=== PATIENT | male | born 1960 | race Caucasian/White ===

== ENCOUNTER 2022-11-15 14:57 | Emergency (ER) | payer BC ==
[2022-11-15 15:08] VITALS: BP 162/86; PULSE 87; RESP 18; TEMP 98.9; BMI 32.3
[2022-11-15] MEDS ORDERED: CEFAZOLIN SODIUM 2 GM VIAL IVPB ONE (15:18)
[2022-11-15] MEDS ORDERED: ceFAZolin SODIUM 1 GM VIAL ONE (15:49)
[2022-11-15 16:05] LABS: INR 0.98 (0.83-1.09); PROTHROMBIN TIME (PATIENT) 11.3 SEC (9.7-13.0)
[2022-11-15 16:13] LABS: ALBUMIN 4.7 g/dl (3.4-5.0); BILIRUBIN,TOTAL 1.1 mg/dl (0.2-1); CALCIUM 9.3 mg/dl (8.5-10); CREATININE 0.9 mg/dl (0.55-1.3); TOT PROT 7.7 g/dl (6.4-8.2)
[2022-11-15 17:37] LABS: HEMATOCRIT 40.8 % (35.4-49); HEMOGLOBIN 14.2 GM/dL (11.7-16.9); MCH 29.4 pg (25.7-33.7); MCHC 34.8 g/dl (32.0-35.9); MEAN CELL VOLUME 84.5 fl (80-96); MEAN PLT VOLUME 8.5 fl (7.5-11.1); PLATELET COUNT 179 10^3/uL (134-434); RBC 4.83 M/mm3 (4.00-5.60); RDW 13.7 % (11.9-15.9); WHITE BLOOD COUNT 7.8 K/mm3 (4.0-10.0)
[2022-11-15 17:52] LABS: BASO % 0.4 % (0-2.0); EOS % 0.6 % (0-4.5); LYMPH % 20.6 % (8-40); MONO % 8.4 % (3.8-10.2)
[2022-11-15] MEDS ORDERED: LIDOCAINE HCL 2% (20ML MULTI-DOSE VIAL) ONE (19:32)
== END 2022-11-15 20:40 | disposition home or self-care (01) ==
LOC: FER 14:57
DX: S60.453A Superficial foreign body of left middle finger, initial encounter (principal); W31.2XXA Contact with powered woodworking and forming machines, initial encounter; Y93.89 Activity, other specified; Z20.822 Contact with and (suspected) exposure to COVID-19
CPT/HCPCS: 36415; 73140-TC-LT-FY; 80053; 85025; 85610; 86850; 86900; 86901; 99284-25; C9803-CS; U0003; U0005

== ENCOUNTER 2023-02-03 20:58 | Observation (INO) | payer BC ==
[2023-02-03] MEDS ORDERED: dilTIAZem HCL 50 MG/10 ML - 10 ML VIAL IVPUSH ONE (21:44)
[2023-02-03] MEDS ORDERED: dilTIAZem HCL 125 MG/25 ML - 25 ML VIAL ONE (21:48)
[2023-02-03 22:13] LABS: HEMATOCRIT 41.5 % (35.4-49); HEMOGLOBIN 14.5 G/dL (11.7-16.9); MCH 31.1 pg (25.7-33.7); MCHC 34.8 g/dl (32.0-35.9); MEAN CELL VOLUME 89.3 fl (80-96); MEAN PLT VOLUME 8.6 fl (7.5-11.1); PLATELET COUNT 160.2 10^3/uL (134-434); RBC 4.65 10^6/uL (4.00-5.60); RDW 13.9 % (11.9-15.9); WHITE BLOOD COUNT 5.9 10^3/uL (4.0-10.8)
[2023-02-03 22:17] LABS: INR 1.22 (0.83-1.09); PROTHROMBIN TIME (PATIENT) 14.1 SEC (9.7-13.0)
[2023-02-03 22:20] LABS: PLATELET ESTIMATE ADEQUATE
[2023-02-03 22:29] LABS: ALBUMIN 4.7 g/dl (3.4-5.0); BILIRUBIN,TOTAL 0.6 mg/dl (0.2-1); BLOOD UREA NITROGEN 21.4 mg/dl (7-18); CALCIUM 9.5 mg/dl (8.5-10.1); CREATININE 1.1 mg/dl (0.6-1.3); POTASSIUM 3.8 mmol/L (3.5-5.1); SGOT/AST 25.6 U/L (15-37); TOT PROT 7.2 g/dl (6.4-8.2)
[2023-02-04 02:14] VITALS: RESP 18
[2023-02-04 04:12] VITALS: BMI 31.6
[2023-02-04] MEDS ORDERED: TAMSULOSIN HCL 0.4 MG CAP PO SCH (08:30)
[2023-02-04] MEDS: dilTIAZem HCL 30 MG TABLET PO SCH ×2 (08:45→13:04)
[2023-02-04] MEDS ORDERED: APIXABAN 5 MG TABLET PO SCH (10:00)
[2023-02-04] MEDS ORDERED: amLODIPine BESYLATE 5 MG TABLET (FP) PO SCH (10:00)
[2023-02-04 11:02] LABS: POTASSIUM 4.5 mmol/L (3.5-5.1)
[2023-02-04 11:04] LABS: BASO % 0.3 % (0-2.0); EOS % 0.9 % (0-4.5); HEMATOCRIT 40.4 % (35.4-49); HEMOGLOBIN 13.9 GM/dL (11.7-16.9); LYMPH % 26.3 % (8-40); MCH 29.5 pg (25.7-33.7); MCHC 34.5 g/dl (32.0-35.9); MEAN CELL VOLUME 85.5 fl (80-96); MEAN PLT VOLUME 8.6 fl (7.5-11.1); MONO % 8.8 % (3.8-10.2); NEUT % 63.7 % (42.8-82.8); PLATELET COUNT 172 10^3/uL (134-434); RBC 4.73 M/mm3 (4.00-5.60); RDW 13.8 % (11.9-15.9); WHITE BLOOD COUNT 5.9 K/mm3 (4.0-10.0)
[2023-02-04 11:09] LABS: CALCIUM 8.9 mg/dL (8.5-10.1)
[2023-02-04 11:10] LABS: BLOOD UREA NITROGEN 20.2 mg/dL (7-18); MAGNESIUM 2.3 mg/dL (1.8-2.4)
[2023-02-04 11:12] LABS: CREATININE 0.9 mg/dL (0.55-1.3)
[2023-02-04 11:13] LABS: PHOSPHOROUS 3.7 mg/dL (2.5-4.9)
[2023-02-04] MEDS: METOPROLOL TARTRATE 25 MG TABLET (FP) PO SCH ×2 (12:19→17:10)
[2023-02-04] MEDS ORDERED: ATORVASTATIN CA 80 MG TABLET (FP) PO SCH (22:00)
[2023-02-05 10:21] VITALS: BP 116/60; PULSE 98; TEMP 98.1
== END 2023-02-04 17:05 | disposition short-term general hospital (02) ==
LOC: FER 20:58 → FM/S 02-04 01:12
PROVIDERS: ADMIT Internal Medicine; ATTEND Internal Medicine
DX: I48.0 Paroxysmal atrial fibrillation (principal); R07.89 Other chest pain; I47.29 Other ventricular tachycardia; E78.5 Hyperlipidemia, unspecified; N40.0 Benign prostatic hyperplasia without lower urinary tract symptoms
CPT/HCPCS: 36415; 80048; 80053; 82728; 83540; 83550; 83735; 84100; 84439; 84443; 84484; 85025; 85027; 85610; 87635; 93005; 93010; 99285-25; G0378